=== PATIENT | female | born 1980 | race Caucasian/White ===

== ENCOUNTER 2018-04-29 21:30 | Emergency (ER) | payer OTHER ==
[2018-04-29] MEDS ORDERED: NS 0.9% 1000 ML* 1,000 ML IV ONE (22:14)
--- NOTE | 2018-04-29 22:14 | ED ---
- HPI Summary HPI Summary: This patient is a 38 year old F brought in by ambulance to [facility] Patient had a medical induced with vaginal insertable pills two weeks ago. At this point she passed several large clots and has been having a small amount of bleeding since. [facility] to ensure she passed all of the tissue. She did not and a suction procedure was done. The physician was unsure if they were able to remove all of the tissue and sent her to make sure there is none left. She states that there she received two pills that dissolved in her mouth and a shot in the leg, but she is unsure what she was given. The patient rates the pain 6/10 in severity. She has not eaten since noon. [id number] - History of Current Complaint Chief Complaint: EDOBProblems Stated Complaint: ABNORMAL BLEEDING Time Seen by Provider: 04/29/18 21:57 Hx Obtained From: Patient Chief Complaint: Vaginal Bleeding Onset/Duration: Started Weeks Ago - 2, Still Present Timing: Constant Severity: Severe Current Severity: Mild Pain Intensity: 6 Associated Signs and Symptoms: Positive: Negative - fever - Allergies/Home Medications Allergies/Adverse Reactions: Allergies Allergy/AdvReac Type Severity Reaction Status Date / Time codeine Allergy Shortness Verified 04/29/18 21:41 of Breath PMH/Surg Hx/FS Hx/Imm Hx Cardiovascular History: Denies: Hx Auto Implanted Cardiovert Defib, Hx Coronary Artery Disease, Hx Deep Vein Thrombosis, Hx Hypercholesterolemia, Hx Hypotension GI History: Denies: Hx Gastroesophageal Reflux Disease, Hx Gastrointestinal Bleed EENT History: Denies: Hx Deafness, Hx Hearing Aid Neurological History: Denies: Hx Developmental Delay - Surgical History Surgery Procedure, Year, and Place: Tonsils, breast cyst removed, meniscus repair, and cholecystectomy Infectious Disease History: No Infectious Disease History: Denies: Traveled Outside the [place] in Last 30 Days - Family History Known Family History: Positive: Diabetes, Other - breast CA Negative: Renal Disease, Seizure Disorder - Social History Alcohol Use: Occasionally Substance Use Type: Reports: None Smoking Status (MU): Former Smoker Review of Systems Negative: Fever Genitourinary: Other - bleeding All Other Systems Reviewed And Are Negative: Yes Physical Exam - Summary Physical Exam Summary: VITAL SIGNS: Reviewed. GENERAL: Patient is a well-developed and nourished Female who is lying comfortable in the stretcher. Patient is not in any acute respiratory distress. HEAD AND FACE: No signs of trauma. No ecchymosis, hematomas or skull depressions. No sinus tenderness. EYES: PERRLA, EOMI x 2, No injected conjunctiva, no nystagmus. EARS: Hearing grossly intact. Ear canals and tympanic membranes are within normal limits. MOUTH: Oropharynx within normal limits. NECK: Supple, trachea is midline, no adenopathy, no JVD, no carotid bruit, no c- spine tenderness, neck with full ROM. CHEST: Symmetric, no tenderness at palpation LUNGS: Clear to auscultation bilaterally. No wheezing or crackles. CVS: Regular rate and rhythm, S1 and S2 present, no murmurs or gallops appreciated. ABDOMEN: Soft, non-tender. No signs of distention. No rebound no guarding, and no masses palpated. Bowel sounds are normal. EXTREMITIES: FROM in all major joints, no edema, no cyanosis or clubbing. NEURO: Alert and oriented x 3. No acute neurological deficits. Speech is normal and follows commands. SKIN: Dry and warm Pelvic: Chaperoned by female aideAnnabel. Speculum exam showed: cervix in mid- way closed and there is no bleeding. - Physical Exam Triage Information Reviewed: Yes Vital Signs Reviewed: Yes Diagnostics - Vital Signs Vital Signs Temp Pulse Resp BP Pulse Ox 04/29/18 21:40 99.3 F 97 20 142/90 98 - Laboratory Result Diagrams: 04/29/18 22:25 04/29/18 22:25 Lab Statement: Any lab studies that have been ordered have been reviewed, and results considered in the medical decision making process. - Additional Comments Diagnostic Additional Comments: Pelvic US reveals, per radiologist, 1. Small amount of free intraperitoneal fluid. 2. Enlarged uterus. 3. The left ovary was not visualized. ED physician has reviewed this radiology report. Course/Dx - Course Assessment/Plan: This patient is a 38 year old F brought in by ambulance to [facility] Patient had a medical induced with vaginal insertable pills two weeks ago. At this point she passed several large clots and has been having a small amount of bleeding since. [facility] to ensure she passed all of the tissue. She did not and a suction procedure was done. The physician was unsure if they were able to remove all of the tissue and sent her to make sure there is none left. She states that there she received two pills that dissolved in her mouth and a shot in the leg, but she is unsure what she was given. The patient rates the pain 6/10 in severity. She has not eaten since noon. [id number]. Pelvic US reveals, per radiologist, 1. Small amount of free intraperitoneal fluid. 2. Enlarged uterus. 3. The left ovary was not visualized. We discussed patient care with Cheng Victor and he states that there are no retained products. Patient will be discharged. The patient is agreeable with this plan. - Diagnoses Provider Diagnoses: Complete - Provider Notifications Discussed Care Of Patient With: Clif Victor Time Discussed With Above Provider: 00:25 Instructed by Provider To: Other - He states that the free fluid is not blood. It is not complex and there are no retained products. Discharge - Sign-Out/Discharge Documenting (check all that apply): Patient Departure - Discharge Plan Condition: Stable Disposition: HOME Patient Education Materials: Miscarriage (ED) Referrals: [facility] REFERRAL [Outside] Additional Instructions: RETURN TO THE EMERGENCY DEPARTMENT FOR CHANGING OR WORSENING SYMPTOMS - Attestation Statements Document Initiated by Scribe: Yes Documenting Scribe: Salvador Hobson Provider For Whom Scribe is Documenting (Include Credential): Josesito Gonzales MD Scribe Attestation: Salvador Chavez , scribed for Josesito Gonzales MD on 04/30/18 at 0024.
[2018-04-29 22:36] LABS: ABS Basophils 0.1 10^3/ul (0-0.2); ABS Eosinophils 0.2 10^3/ul (0-0.6); ABS Lymphocytes 2.1 10^3/ul (1.0-4.8); ABS Monocytes 0.5 10^3/ul (0-0.8); ABS Neutrophils 10.8 10^3/ul (1.5-7.7); ABS Nucleated RBC 0 10^3/ul; Eosinophil % 1.7 % (0-6); Hematocrit 31 % (35-47); Hemoglobin 10.2 g/dl (12.0-16.0); Lymphocyte % 15.4 % (25-47); Mean Corpuscular HGB Conc 33 g/dl (31-36); Mean Corpuscular Hemoglobin 31 pg (27-31); Mean Corpuscular Volume 93 fL (80-97); Mean Platelet Volume 7.5 fL (7.4-10.4); Nucleated Red Blood Cells % 0; Platelet Count 275 10^3/ul (150-450); Red Blood Count 3.32 10^6/ul (4.00-5.40); Red Cell Distribution Width 14 % (10.5-15); White Blood Count 13.7 10^3/ul (3.5-10.8)
[2018-04-29 22:52] LABS: EGFR Non-African American 90.2 (>60)
[2018-04-30 00:39] VITALS: BP 115/65
== END 2018-04-30 00:39 | disposition home or self-care (01) ==
LOC: ED 21:30
DX: O03.9 Complete or unspecified spontaneous abortion without complication (principal)
CPT/HCPCS: 36415; 76830; 80053; 84702; 85025; 86850; 86900; 86901; 96360; 99283